=== PATIENT | female | born 1995 | race Two or more races ===

== ENCOUNTER 2019-04-09 16:02 | Outpatient (CLI) | payer OTHER, MEDICAID ==
[2019-04-09 19:02] LABS: RUPTURE FETAL MEMBRANES NEGATIVE (NEGATIVE)
== END 2019-04-09 21:25 | disposition home or self-care (01) ==
LOC: OBT 16:02 → L-D 16:03 → OBT 21:25
DX: O41.03X0 Oligohydramnios, third trimester, not applicable or unspecified (principal); O24.419 Gestational diabetes mellitus in pregnancy, unspecified control; Z3A.35 35 weeks gestation of pregnancy
CPT/HCPCS: 76818; 82962; 84112

== ENCOUNTER 2019-04-10 18:17 | Outpatient (CLI) | payer OTHER | END 2019-04-10 20:18 | disposition home or self-care (01) | LOC: OBT 18:17 → L-D 18:18 → OBT 20:18 | DX: O36.8130 Decreased fetal movements, third trimester, not applicable or unspecified (principal); Z3A.35 35 weeks gestation of pregnancy | CPT/HCPCS: 76818 ==

== ENCOUNTER 2019-04-24 19:01 | Inpatient (IN) | payer OTHER ==
[2019-04-24 19:36] LABS: COLLECTION PERIOD 24 hrs
[2019-04-24 19:43] LABS: ADD UMIC YES; UR ASCORBIC ACID NEGATIVE (NEGATIVE); UR BACTERIA FEW /HPF (NONE SEEN); UR BILIRUBIN (Dip) NEGATIVE (NEGATIVE); UR BLOOD (Dip) NEGATIVE (NEGATIVE); UR CLARITY CLEAR (CLEAR); UR COLOR STRAW (YELLOW); UR GLUCOSE (Dip) NEGATIVE (NEGATIVE); UR KETONES (Dip) NEGATIVE (NEGATIVE); UR LEUKOCYTE ESTERASE (Dip) 1+ Leu/ul (NEGATIVE); UR NITRITE (Dip) NEGATIVE (NEGATIVE); UR RBC 2 /HPF (0-5); UR SPECIFIC GRAVITY (Dip) 1.002 (1.003-1.030); UR SQUAMOUS EPITHELIAL CELL FEW /HPF (FEW); UR TOTAL PROTEIN (Dip) NEGATIVE (NEGATIVE); UR UROBILINOGEN (Dip) NEGATIVE (NEGATIVE); UR WBC 9 /HPF (0-5)
[2019-04-24 19:50] LABS: ADD MAN DIFF? NO
[2019-04-24 19:51] LABS: BASOPHILS % 0.3 % (0.0-2.0); EOSINOPHILS # 0.1 10^3/ul (0.0-0.5); EOSINOPHILS % 1.2 % (0.0-7.0); HEMATOCRIT 36.1 % (37.0-47.0); HEMOGLOBIN 11.6 g/dl (12.0-16.0); LYMPHOCYTES % 21.2 % (15.0-51.0); MEAN CORPUSCULAR HEMOGLOBIN 28.1 pg (29.0-33.0); MEAN CORPUSCULAR HGB CONC 32.1 g/dl (32.0-37.0); MEAN CORPUSCULAR VOLUME 87.4 fl (82.0-101.0); MEAN PLATELET VOLUME 10.3 fl (7.4-10.4); MONOCYTE # 0.7 10^3/ul (0.3-0.9); MONOCYTES % 7.4 % (0.0-11.0); NEUTROPHIL # 6.6 10^3/ul (1.6-7.5); NEUTROPHILS % 69.4 % (39.0-77.0); PLATELET COUNT 222 10^3/UL (140-415); RED BLOOD COUNT 4.13 10^6/ul (4.20-5.40); RED CELL DISTRIBUTION WIDTH 14.2 % (11.5-14.5)
[2019-04-24 19:51] LABS: WHITE BLOOD COUNT 9.4 10^3/ul (4.8-10.8)
[2019-04-24 19:55] LABS: COLLECTION PERIOD 24 hrs; CREATININE,URINE RANDOM 24.58 mg/dl (20-320); VOLUME 3150 ml/24hrs; VOLUME 3150 mls
[2019-04-24 20:08] LABS: ALANINE AMINOTRANSFERASE 27 IU/L (13-69); ALBUMIN 3.5 g/dl (3.3-4.9); ALBUMIN/GLOBULIN RATIO 1.09; ALKALINE PHOSPHATASE 150 IU/L (42-121); ANION GAP 8 (5-13); ASPARTATE AMINO TRANSFERASE 18 IU/L (15-46); BILIRUBIN,INDIRECT 0.4 mg/dl (0-1.1); BILIRUBIN,TOTAL 0.4 mg/dl (0.2-1.3); BLOOD UREA NITROGEN 4 mg/dl (7-20); CALCIUM 10.3 mg/dl (8.4-10.2); CARBON DIOXIDE 23 mmol/L (21-31); CHLORIDE 107 mmol/L (97-110); CREATININE 0.34 mg/dl (0.44-1.00); Estimated GFR > 60 mL/min (>60); GLUCOSE 71 mg/dl (70-220); POTASSIUM 3.4 mmol/L (3.5-5.1); SODIUM 138 mmol/L (135-144); TOTAL PROTEIN 6.7 g/dl (6.1-8.1); URIC ACID 3.7 mg/dl (3.1-7.9)
[2019-04-24 20:11] LABS: CREATININE CLEARANCE 158.1 mls/min (84.0-162.0); SCRET 0.34 mg/dl (0.44-1.00)
[2019-04-24 20:17] LABS: INR 0.89; PROTIME 12.2 Sec (11.9-14.9)
[2019-04-24 20:18] LABS: PARTIAL THROMBOPLASTIN TIME 28.3 Sec (23.0-35.0)
[2019-04-24] MEDS ORDERED: MISOPROSTOL 200 MCG TAB PR (22:00)
[2019-04-24] MEDS ORDERED: AMPICILLIN 2 GM/NS (PMX) 100 ML IV (22:00)
[2019-04-24] MEDS ORDERED: BUTORPHANOL 2 MG INJ IV ×2 (22:00)
[2019-04-24] MEDS ORDERED: OXYTOCIN 30 UNITS/LR 500 ML IV (22:00)
[2019-04-24] MEDS ORDERED: CARBOPROST 250 MCG INJ IM (22:00)
[2019-04-24] MEDS ORDERED: LIDOCAINE 1% (MPF) 30 ML INJ INJ (22:00)
[2019-04-24] MEDS ORDERED: IBUPROFEN 600 MG TAB PO (22:00)
[2019-04-24] MEDS ORDERED: METHYLERGONOVINE 0.2 MG INJ IM (22:00)
[2019-04-24] MEDS ORDERED: GLUCOSE GEL 15 GRAM TUBE BUCCAL (22:30)
[2019-04-24] MEDS ORDERED: GLUCAGON 1 MG INJ IM (22:30)
[2019-04-24] MEDS ORDERED: DEXTROSE 50% 50 ML SYRINGE IV ×2 (22:30)
[2019-04-24] MEDS ORDERED: GLUCOSE GEL 15 GRAM TUBE PO ×2 (22:30)
[2019-04-24 23:10] LABS: HEPATITIS B SURFACE ANTIGEN NEGATIVE (NEGATIVE)
[2019-04-25] MEDS: LACTATED RINGER'S 1,000 ML IV ×4 (00:36→18:09)
[2019-04-25] MEDS: OXYTOCIN 30 UNITS/LR 500 ML IV ×3 (00:48→22:36)
[2019-04-25] MEDS ORDERED: AMPICILLIN 1 GM/NS (PMX) 50 ML IV (02:00)
[2019-04-25] MEDS: ACETAMINOPHEN 325 MG TAB PO ×2 (12:34→17:07)
[2019-04-25] MEDS ORDERED: FENTAnyl 2MCG/ML-ROPIV 0.2% 100 ML (13:17)
[2019-04-25] MEDS ORDERED: NALOXONE (0.4 MG/ML) INJ IV (13:30)
[2019-04-25] MEDS ORDERED: DIPHENHYDRAMINE 50 MG INJ IV ×2 (13:30→23:00)
[2019-04-25] MEDS ORDERED: ONDANSETRON 4 MG INJ IV ×2 (13:30→23:00)
[2019-04-25] MEDS: FENTAnyl 2MCG/ML-ROPIV 0.2% 100 ML BAG EPI ×2 (15:08→21:16)
[2019-04-25 19:08] LABS: RAPID PLASMA REAGIN NONREACTIVE (NR)
[2019-04-25] MEDS: MINERAL OIL LIGHT 10 ML VIAL TOP (22:34)
[2019-04-25] MEDS ORDERED: HYDROCODONE/APAP (5/325) TAB PO ×2 (23:00)
[2019-04-25] MEDS ORDERED: CARBOPROST 250 MCG INJ IM (23:00)
[2019-04-25] MEDS ORDERED: OXYTOCIN 30 UNITS/LR 500 ML IV (23:00)
[2019-04-25] MEDS ORDERED: DIPHENHYDRAMINE 25 MG CAP PO (23:00)
[2019-04-25] MEDS ORDERED: ACETAMINOPHEN 325 MG TAB PO ×2 (23:00)
[2019-04-25] MEDS ORDERED: BENZOCAINE 20% 56 ML SPRAY TOP (23:00)
[2019-04-25] MEDS ORDERED: DIBUCAINE 1% 30 GM OINT TOP (23:00)
[2019-04-25] MEDS ORDERED: METHYLERGONOVINE 0.2 MG INJ IM (23:00)
[2019-04-25] MEDS ORDERED: MISOPROSTOL 200 MCG TAB PR (23:00)
[2019-04-25] MEDS ORDERED: WITCH HAZEL/GLYCERIN PAD PR (23:00)
[2019-04-25] MEDS ORDERED: ONDANSETRON 4 MG TAB PO (23:00)
[2019-04-26] MEDS: IBUPROFEN 800 MG TAB PO ×4 (01:23→21:58)
[2019-04-26 06:43] LABS: ADD MAN DIFF? NO
[2019-04-26 06:46] LABS: BASOPHILS % 0.2 % (0.0-2.0); EOSINOPHILS # 0.1 10^3/ul (0.0-0.5); EOSINOPHILS % 0.4 % (0.0-7.0); HEMATOCRIT 31.5 % (37.0-47.0); HEMOGLOBIN 10.5 g/dl (12.0-16.0); LYMPHOCYTES # 1.9 10^3/ul (0.8-2.9); LYMPHOCYTES % 13.3 % (15.0-51.0); MEAN CORPUSCULAR HEMOGLOBIN 28.8 pg (29.0-33.0); MEAN CORPUSCULAR HGB CONC 33.3 g/dl (32.0-37.0); MEAN CORPUSCULAR VOLUME 86.3 fl (82.0-101.0); MONOCYTES % 7.1 % (0.0-11.0); NEUTROPHIL # 11.4 10^3/ul (1.6-7.5); NEUTROPHILS % 78.4 % (39.0-77.0); PLATELET COUNT 189 10^3/UL (140-415); RED BLOOD COUNT 3.65 10^6/ul (4.20-5.40)
[2019-04-26 06:46] LABS: WHITE BLOOD COUNT 14.5 10^3/ul (4.8-10.8)
[2019-04-26 07:04] LABS: INR 0.99; PARTIAL THROMBOPLASTIN TIME 28.9 Sec (23.0-35.0); PROTIME 13.2 Sec (11.9-14.9)
[2019-04-26 07:13] LABS: ALANINE AMINOTRANSFERASE 28 IU/L (13-69); ALBUMIN 2.6 g/dl (3.3-4.9); ALKALINE PHOSPHATASE 128 IU/L (42-121); ASPARTATE AMINO TRANSFERASE 28 IU/L (15-46); BILIRUBIN,INDIRECT 0.5 mg/dl (0-1.1); BILIRUBIN,TOTAL 0.5 mg/dl (0.2-1.3); TOTAL PROTEIN 5.2 g/dl (6.1-8.1)
[2019-04-26 07:17] LABS: ANION GAP 5 (5-13); BLOOD UREA NITROGEN 5 mg/dl (7-20); CALCIUM 8.8 mg/dl (8.4-10.2); CARBON DIOXIDE 25 mmol/L (21-31); CHLORIDE 106 mmol/L (97-110); Estimated GFR > 60 mL/min (>60); GLUCOSE 96 mg/dl (70-220); POTASSIUM 3.2 mmol/L (3.5-5.1); SODIUM 136 mmol/L (135-144)
[2019-04-26] MEDS: SENNA/DOCUSATE NA (8.6MG/50MG) TAB PO (09:37)
[2019-04-26] MEDS: LANOLIN HPA 1 PKT TOP (09:37)
[2019-04-26] MEDS: LACTATED RINGER'S 1,000 ML IV* ×2 (10:26→18:17)
[2019-04-27] MEDS: SENNA/DOCUSATE NA (8.6MG/50MG) TAB PO (01:14)
[2019-04-27] MEDS: LACTATED RINGER'S 1,000 ML IV* (01:14)
[2019-04-27] MEDS: MAGNESIUM HYDROXIDE 30ML CUP PO (04:41)
[2019-04-27] MEDS: IBUPROFEN 800 MG TAB PO ×5 (06:47→18:45)
[2019-04-27] MEDS: MEASLES,MUMPS,RUBELLA VACCINE INJ SC* (08:06)
[2019-04-27 08:47] LABS: ADD MAN DIFF? NO
[2019-04-27 08:59] LABS: BASOPHIL # 0.1 10^3/ul (0.0-0.1); BASOPHILS % 0.4 % (0.0-2.0); EOSINOPHILS # 0.1 10^3/ul (0.0-0.5); EOSINOPHILS % 0.8 % (0.0-7.0); HEMATOCRIT 31.6 % (37.0-47.0); HEMOGLOBIN 9.9 g/dl (12.0-16.0); LYMPHOCYTES # 2.3 10^3/ul (0.8-2.9); MEAN CORPUSCULAR HGB CONC 31.3 g/dl (32.0-37.0); MEAN CORPUSCULAR VOLUME 89.5 fl (82.0-101.0); MEAN PLATELET VOLUME 10.6 fl (7.4-10.4); MONOCYTE # 0.7 10^3/ul (0.3-0.9); MONOCYTES % 4.8 % (0.0-11.0); NEUTROPHIL # 10.5 10^3/ul (1.6-7.5); NEUTROPHILS % 76.3 % (39.0-77.0); PLATELET COUNT 207 10^3/UL (140-415); RED BLOOD COUNT 3.53 10^6/ul (4.20-5.40); RED CELL DISTRIBUTION WIDTH 14.3 % (11.5-14.5)
[2019-04-27 08:59] LABS: WHITE BLOOD COUNT 13.7 10^3/ul (4.8-10.8)
[2019-04-27] MEDS: VARICELLA VACCINE LIVE/PF 1,350 UNIT/0.5 ML ML SC* (09:00)
[2019-04-27] MEDS: DIPHTH/TET/ACEL PERTUSS (ADULT) 0.5 ML VIAL IM* (09:00)
== END 2019-04-27 18:52 | disposition home or self-care (01) | DRG 768 ==
LOC: OBT 19:01 → PP1 04-26 00:18 → L-D 19:02 → OBT 21:30 → L-D 21:30
PROC: 10E0XZZ Delivery of Products of Conception, External Approach (ICD-10-PCS; principal; 2019-04-25)
PROC: 0DQR0ZZ Repair Anal Sphincter, Open Approach (ICD-10-PCS; 2019-04-25)
PROC: 3E033VJ Introduction of Other Hormone into Peripheral Vein, Percutaneous Approach (ICD-10-PCS; 2019-04-25)
DX: O70.20 Third degree perineal laceration during delivery, unspecified (principal); Z37.0 Single live birth; O24.12 Pre-existing type 2 diabetes mellitus, in childbirth; O10.92 Unspecified pre-existing hypertension complicating childbirth; E11.9 Type 2 diabetes mellitus without complications; O99.214 Obesity complicating childbirth; Z3A.37 37 weeks gestation of pregnancy
CPT/HCPCS: 62322; 76815; 80048; 80053; 80076; 81001; 82575; 82962; 84156; 84560; 85025; 85610; 85730; 86592; 86850; 86900; 86901; 87340; 88307; 90716; 99464

== ENCOUNTER 2019-05-01 20:26 | Emergency (ER) | payer OTHER ==
[2019-05-01] MEDS: GLYCERIN (ADULT) SUPP PR (21:57)
== END 2019-05-01 22:13 | disposition home or self-care (01) ==
LOC: FTE 20:26
DX: K59.00 Constipation, unspecified (principal)
CPT/HCPCS: 99282; Z7502

== ENCOUNTER 2019-05-18 17:22 | Emergency (ER) | payer OTHER ==
[2019-05-18 18:25] LABS: ADD UMIC YES; UR ASCORBIC ACID 20 mg/dL (NEGATIVE); UR BACTERIA FEW /HPF (NONE SEEN); UR BILIRUBIN (Dip) NEGATIVE (NEGATIVE); UR BLOOD (Dip) 2+ mg/dL (NEGATIVE); UR CLARITY CLOUDY (CLEAR); UR COLOR YELLOW (YELLOW); UR GLUCOSE (Dip) NEGATIVE (NEGATIVE); UR KETONES (Dip) NEGATIVE (NEGATIVE); UR LEUKOCYTE ESTERASE (Dip) 3+ Leu/ul (NEGATIVE); UR MUCUS FEW /HPF (NONE SEEN); UR NITRITE (Dip) NEGATIVE (NEGATIVE); UR RBC 24 /HPF (0-5); UR SPECIFIC GRAVITY (Dip) 1.013 (1.003-1.030); UR SQUAMOUS EPITHELIAL CELL FEW /HPF (FEW); UR TOTAL PROTEIN (Dip) NEGATIVE (NEGATIVE); UR UROBILINOGEN (Dip) NEGATIVE (NEGATIVE); UR WBC 180 /HPF (0-5)
== END 2019-05-18 18:42 | disposition home or self-care (01) ==
LOC: FTE 17:22
DX: O99.73 Diseases of the skin and subcutaneous tissue complicating the puerperium (principal); L29.9 Pruritus, unspecified
CPT/HCPCS: 81001; 81025; 99283